=== PATIENT | female | born 1960 | race Caucasian/White ===

== ENCOUNTER → 2019-04-13 | Outpatient (CLI) | payer OTHER ==
[~2019-04-13] MED LIST: ALBU90OI INH; ALPR.5 PO; ARIP10 PO; AZEL137S NS; AZELASTINE HCL6 ML BOTHEYES; Alprazolam0.5 MG PO; BUDE6HFA INH; BUPR150ER PO; Bupropion HCl200 MG PO; CLON1 PO; COMBIVENT RESPIM4 GM INH; DHEA; Desyrel150 MG PO; ESTR.05PBW TOP; ESZOPICLONE2 MG PO; Estradiol0.5 MG; FEXPSEER PO; FLUSAL2505 IH; FURO40 PO; Flonase 0.05% N16 GM; HYDACE5 PO; HYDCHL12.5 PO; HYDR1TAB94 PO; LAMO100 PO; LATUDA20 MG PO; LEVLIO1 PO; LEVSOD125 PO; LORA1 PO; Lamotrigine100 MG PO; MELO7.5 PO; METF500 PO; MOMENI; MONT10T PO; MOXI400 PO; Metronidazole70 GM VG; Micro-K10 MEQ PO; Multiple Vitam1 EAC1 PO; NUCALA100 MG; NUCALA100 MG SQ; OMEP20ER PO; OXYC5; PRAZ1 PO; Pataday2.5 ML; Percocet 5-3251 EACH PO; Prednisone20 MG PO; T3/T4; THYR60 PO; THYROLAR; TRET.1TC TOP; VENL75ER PO; Vitamin D2000 UNIT PO; Vivelle-Dot1 EAC3 TD; Zithromax250 MG PO; [UNRECOGNIZED DRUG - MIXTURE]
[2019-04-13 14:57] LABS: BASOPHILS ABSOLUTE AUTO 0.05 K/mm3 (0.00-0.23); BASOPHILS PERCENT AUTO 1 % (0-2); EOSINOPHILS ABSOLUTE AUTO 0.28 K/mm3 (0.00-0.68); EOSINOPHILS PERCENT AUTO 4 % (0-6); Hematocrit 40.6 % (33.0-51.0); Hemoglobin 13.9 g/dL (11.5-16.0); IMMATURE GRAN ABSOLUTE AUTO 0.02 K/mm3 (0.00-0.10); IMMATURE GRAN PERCENT AUTO 0 % (0-1); LYMPHOCYTES ABSOLUTE AUTO 2.17 K/mm3 (0.84-5.20); LYMPHOCYTES PERCENT AUTO 29 % (21-46); MONOCYTES ABSOLUTE AUTO 0.56 K/mm3 (0.16-1.47); MONOCYTES PERCENT AUTO 8 % (4-13); Mean Corpuscular HGB 32.4 pg (26.0-34.0); Mean Corpuscular HGB Conc 34.2 g/dL (31.5-36.5); Mean Corpuscular Volume 95 fL (80-100); Mean Platelet Volume 9.3 fL (9.1-12.4); NEUTROPHILS ABSOLUTE AUTO 4.33 K/mm3 (1.96-9.15); NEUTROPHILS PERCENT AUTO 58 % (41-73); Platelet Count 232 K/mm3 (150-400); RDW Coefficient Variation 11.9 % (11.7-14.2); RDW Standard Deviation 41.5 fL (35.1-46.3); Red Blood Cell Count 4.29 M/mm3 (3.80-5.20); White Blood Cell Count 7.41 K/mm3 (4.00-11.30)
[2019-04-13 15:15] LABS: Alanine Aminotransfer (ALT/SGP 62 U/L (12-78); Albumin, Blood 3.9 g/dL (3.4-5.0); Albumin/Globulin Ratio 1.3 (0.8-1.8); Alk Phos 64 U/L (40-126); Anion Gap 8 mmol/L (6-16); Aspartate Aminotrans (AST/SGOT 27 U/L (12-37); Bilirubin, Total 0.3 mg/dL (0.1-1.0); Blood Urea Nitrogen 15 mg/dL (8-24); Bun/Creatinine Ratio 18.3 (12.0-20.0); CO2, Blood 30 mmol/L (21-32); Calcium, Blood 8.6 mg/dL (8.5-10.1); Chloride, Blood 103 mmol/L (98-108); Creatinine, Blood 0.82 mg/dL (0.40-1.00); Glomerular Filtration Rate >60 (60-); Glucose, Blood 96 mg/dL (70-99); Potassium, Blood 3.6 mmol/L (3.5-5.5); Sodium, Blood 141 mmol/L (136-145); Thyroid Stimulating Hormone 1.018 uIU/mL (0.360-4.800); Total Protein, Blood 6.9 g/dL (6.4-8.2)
== END | disposition home or self-care (01) ==
LOC: LAB SHORT 14:51 → LAB EV 14:51
PROVIDERS: Physician Assistant Medical
DX: R53.83 Other fatigue (principal)
CPT/HCPCS: 80053; 84443; 85025

== ENCOUNTER → 2022-09-03 | Outpatient (CLI) | payer OTHER | LOC: LAB SHORT 08:42 → LAB 08:42 → LAB SHORT 09-04 11:42 | DX: R19.5 Other fecal abnormalities (principal); K59.00 Constipation, unspecified | CPT/HCPCS: 87015; 87045; 87046; 87205; 87899 ==

== ENCOUNTER 2022-10-17 07:49 | Day surgery (SDC) | payer OTHER ==
[~2022-10-17] VITALS: Ht 170.2 cm; Wt 92.4 kg
[2022-10-17] MEDS ORDERED: SERT20L (08:25)
== END 2022-10-17 10:06 | disposition home or self-care (01) ==
LOC: ORSCSDS 07:49
PROVIDERS: Surgery
PROC: 0DBH8ZX Excision of Cecum, Via Natural or Artificial Opening Endoscopic, Diagnostic (ICD-10-PCS; principal; 2022-10-17 09:15)
PROC: 0DBK8ZX Excision of Ascending Colon, Via Natural or Artificial Opening Endoscopic, Diagnostic (ICD-10-PCS; principal; 2022-10-17 09:15)
DX: Z12.11 Encounter for screening for malignant neoplasm of colon (principal); Z86.010 Personal history of colon polyps; D12.0 Benign neoplasm of cecum; D12.4 Benign neoplasm of descending colon; K57.30 Diverticulosis of large intestine without perforation or abscess without bleeding; J45.909 Unspecified asthma, uncomplicated; E03.9 Hypothyroidism, unspecified; Z79.899 Other long term (current) drug therapy
CPT/HCPCS: 88305; J2704; J7120

== ENCOUNTER 2024-04-25 14:01 | Emergency (ER) | payer OTHER ==
[~2024-04-25] VITALS: Ht 167.6 cm; Wt 95.7 kg
[~2024-04-25 14:01] MED LIST changes: -CYCL10 PO; -LIDO700A20 TOP; -OXAYDO5 M1 PO
[2024-04-25 14:42] LABS: BASOPHILS ABSOLUTE AUTO 0.04 K/mm3 (0.00-0.23); BASOPHILS PERCENT AUTO 1 % (0-2); EOSINOPHILS ABSOLUTE AUTO 0.06 K/mm3 (0.00-0.68); EOSINOPHILS PERCENT AUTO 1 % (0-6); Hematocrit 43.4 % (33.0-51.0); Hemoglobin 14.8 g/dL (11.5-16.0); IMMATURE GRAN ABSOLUTE AUTO 0.03 K/mm3 (0.00-0.10); IMMATURE GRAN PERCENT AUTO 0 % (0-1); LYMPHOCYTES ABSOLUTE AUTO 1.86 K/mm3 (0.84-5.20); LYMPHOCYTES PERCENT AUTO 27 % (21-46); MONOCYTES ABSOLUTE AUTO 0.59 K/mm3 (0.16-1.47); MONOCYTES PERCENT AUTO 9 % (4-13); Mean Corpuscular HGB 32.5 pg (26.0-34.0); Mean Corpuscular HGB Conc 34.1 g/dL (31.5-36.5); Mean Corpuscular Volume 95 fL (80-100); Mean Platelet Volume 9.3 fL (9.1-12.4); NEUTROPHILS ABSOLUTE AUTO 4.21 K/mm3 (1.96-9.15); NEUTROPHILS PERCENT AUTO 62 % (41-73); Platelet Count 251 K/mm3 (150-400); RDW Coefficient Variation 12.8 % (11.7-14.2); RDW Standard Deviation 44.5 fL (35.1-46.3); Red Blood Cell Count 4.55 M/mm3 (3.80-5.20); White Blood Cell Count 6.79 K/mm3 (4.00-11.30)
[2024-04-25 15:12] LABS: Albumin, Blood 3.9 g/dL (3.4-5.0); Albumin/Globulin Ratio 1.2 (0.8-1.8); Bilirubin, Total 0.3 mg/dL (0.1-1.0); Bun/Creatinine Ratio 30.7 (12.0-20.0); Calcium, Blood 8.6 mg/dL (8.5-10.1); Creatinine, Blood 0.59 mg/dL (0.40-1.00); Globulin, Blood 3.2 g/dL (2.2-4.0); Magnesium, Blood 2.4 mg/dL (1.6-2.4); Potassium, Blood 3.7 mmol/L (3.5-5.5); Total Protein, Blood 7.1 g/dL (6.4-8.2)
[2024-04-25] MEDS ORDERED: Ketorolac Tromethamine 30mg Vial IV ONE (15:30)
[2024-04-25 15:36] LABS: Source, Urine Clean Catch
[2024-04-25 15:39] LABS: Appearance, Urine Clear (Clear); Bilirubin, Urine Neg (Neg); Blood, Urine Neg (Neg); Color, Urine Yellow (P-Yellow); Glucose Qualitative, Urine Neg (Neg); Ketones, Urine Neg (Neg); Leukocyte Esterase, Urine Neg (Neg); Nitrite, Urine Neg (Neg); Protein, Urine Neg (Neg); Urobilinogen, Urine NORM (Normal)
[2024-04-25] MEDS ORDERED: Lidocaine 4% 1 Patch TOP ONE (15:50)
[2024-04-25] MEDS ORDERED: OxyCODONE HCL 5 MG TAB PO ONE (17:00)
[2024-04-25] MEDS ORDERED: LIDO700A20 TOP (17:03)
[2024-04-25] MEDS ORDERED: CYCL10 PO (17:03)
[2024-04-25] MEDS ORDERED: OXAYDO5 M1 PO (17:03)
[2024-04-25 17:41] VITALS: BP 181/81
[2024-04-29] MEDS ORDERED: LIDO700A20 TOP (17:07)
== END 2024-04-25 17:43 | disposition home or self-care (01) ==
LOC: ER 14:01
PROVIDERS: Physician Assistant
DX: R10.9 Unspecified abdominal pain (principal); M54.10 Radiculopathy, site unspecified; M54.30 Sciatica, unspecified side; E03.9 Hypothyroidism, unspecified; J45.909 Unspecified asthma, uncomplicated; Z79.899 Other long term (current) drug therapy; Z88.8 Allergy status to other drugs, medicaments and biological substances
CPT/HCPCS: 74177; 80053; 81003; 83735; 85025; 96374-59; 99284-25; A9270; J1885; Q9967

== ENCOUNTER → 2024-04-25 | Outpatient (CLI) | payer OTHER ==
[~2024-04-25] MED LIST changes: +CYCL10 PO; +LIDO700A20 TOP; +OXAYDO5 M1 PO; +SERT20L
== END ==
LOC: LAB 11:13 → LAB SHORT 11:13
DX: R30.0 Dysuria (principal)
CPT/HCPCS: 87086

== ENCOUNTER 2025-10-30 10:43 | Emergency (ER) | payer OTHER ==
[~2025-10-30] VITALS: Ht 167.6 cm; Wt 77.1 kg
[~2025-10-30 10:43] MED LIST changes: +CYCL10 PO; +LIDO700A20 TOP; +OXAYDO5 M1 PO
[2025-10-30] MEDS ORDERED: HYDROcodone 5-APAP 325 TAB PO ONE ×2 (11:10→15:35)
[2025-10-30 14:11] LABS: Source, Urine Voided
[2025-10-30 14:52] LABS: Bilirubin, Urine Neg (Neg); Color, Urine Yellow (P-Yellow); Glucose Qualitative, Urine Neg (Neg); Ketones, Urine Neg (Neg); Leukocyte Esterase, Urine Neg (Neg); Protein, Urine Neg (Neg); Specific Gravity, Urine 1.010 (1.003-1.022); Urobilinogen, Urine NORM (Normal)
[2025-10-30] MEDS ORDERED: Dexamethasone Sod Phos 10 MG/ML 1ML VIAL PO ONE (15:20)
[2025-10-30] MEDS ORDERED: HYDROCODONE-AC1 EA10 PO (15:31)
[2025-10-30] MEDS ORDERED: METPRE4DP PO (15:31)
[2025-10-30] MEDS ORDERED: IBUP600 PO (15:31)
[2025-10-30 15:43] VITALS: BP 161/97
== END 2025-10-30 15:46 | disposition home or self-care (01) ==
LOC: ER 10:43
PROVIDERS: Emergency Medicine
DX: M54.10 Radiculopathy, site unspecified (principal); J45.909 Unspecified asthma, uncomplicated; Z88.8 Allergy status to other drugs, medicaments and biological substances; Z79.899 Other long term (current) drug therapy; Z98.1 Arthrodesis status
CPT/HCPCS: 72080; 81003; 99283-25; A9270; J1100